=== PATIENT | male | born 1940 ===

== ENCOUNTER 2016-07-02 00:34 | Emergency (ER) | payer MEDICARE, MEDICAID ==
[2016-07-02 00:34] VITALS: BMI 28.3
[2016-07-02 00:52] VITALS: O2SAT 97
[2016-07-02 01:00] VITALS: RESP 18
--- NOTE | 2016-07-02 01:28 | C.PDOC ---
History Of Present Illness The patient reports that he checked his BP at 11pm tonight and it was found to be elevated. BP was 159/107 and patient took Metoprolol 50mg PO. Currently the patient states he had no symptoms and feels well. Denies chest pain, SOB, numbness, weakness, back pain, abdominal pain, headache, or vision changes. Time Seen by Provider: 07/02/16 00:53 Chief Complaint (Nursing): High Blood Pressure History Per: Patient History/Exam Limitations: no limitations Current Symptoms Are (Timing): Gone Quality Of Symptoms: Asymptomatic Exacerbating Factor(s): Pos: None Recent travel outside of the [place]: No Past Medical History Reviewed: Historical Data, Nursing Documentation, Vital Signs Vital Signs: Last Vital Signs Temp 98.1 F 07/02/16 00:53 Pulse 83 07/02/16 00:53 Resp 18 07/02/16 00:53 BP 138/98 H 07/02/16 00:53 Pulse Ox 97 07/02/16 01:50 - Medical History PMH: Alzheimer's Disease, Anxiety, Dementia, HTN Denies: Chronic Kidney Disease - [facility] Procedures INTRODUCTION OF SERUM/TOX/VACCINE INTO MUSCLE, PERC APPROACH (12/09/14) Family History: States: No Known Family Hx - Social History Hx Tobacco Use: No Hx Alcohol Use: No Hx Substance Use: No - Immunization History Hx Tetanus Toxoid Vaccination: No Hx Influenza Vaccination: Yes Hx Pneumococcal Vaccination: No Review Of Systems Except As Marked, All Systems Reviewed And Found Negative. Physical Exam - Physical Exam Appears: Well, No Acute Distress Skin: Normal Color, Warm, Dry, No Rash Head: Atraumatic, Normacephalic Eye(s): bilateral: Normal Inspection, PERRL, EOMI Nose: Normal Oral Mucosa: Moist Throat: Normal Neck: Normal, Normal ROM, Supple Chest: Symmetrical, No Tenderness Cardiovascular: Rhythm Regular, No Friction Rub, No Murmur Respiratory: Normal Breath Sounds, No Rales, No Rhonchi, No Wheezing Gastrointestinal/Abdominal: Normal Exam, Soft, No Tenderness Back: Normal Inspection, No CVA Tenderness Extremity: Normal ROM, No Tenderness, No Swelling Neurological/Psych: Oriented x3, Normal Speech, Normal Motor Gait: Steady ED Course And Treatment O2 Sat by Pulse Oximetry: 97 (on RA) Pulse Ox Interpretation: Normal Medical Decision Making Medical Decision Making: BP was rechecked and currently has improved. The patient remain asymptomatic and will follow up with his PMD within 1-2 days for BP recheck and medication review. Disposition - Disposition Referrals: Terence Cortez MD [Staff Provider] - Disposition: HOME/ ROUTINE Disposition Time: 01:58 Condition: GOOD Additional Instructions: Follow up with the medical doctor within 1-2 days without fail for BP recheck. Return if worsened. Instructions: Hypertension (DC) - Clinical Impression Clinical Impression: Hypertension
[2016-07-02 02:06] VITALS: BP 128/93; PULSE 70; TEMP 97.9
== END 2016-07-02 02:12 | disposition home or self-care (01) ==
LOC: C.ER 00:34
DX: I10 Essential (primary) hypertension (principal)

== ENCOUNTER 2017-05-08 17:51 | Emergency (ER) | payer MEDICARE, MEDICAID ==
[2017-05-08 17:51] VITALS: BMI 28.3
[2017-05-08 18:21] VITALS: TEMP 97.6
[2017-05-08] MEDS ORDERED: Sodium Chloride 0.9% 1,000 ML IV ONE (19:05)
[2017-05-08 19:17] LABS: BASO % 0.1 % (0.0-2.0); HEMOGLOBIN 14.5 g/dL (12.0-18.0); LYMPH # 0.6 K/uL (1.0-4.3); LYMPH % 9.2 % (20.0-40.0); MEAN CELL VOLUME 87.3 fL (80.0-94.0); MEAN CORPUSCULAR HEMOGLOBIN 29.3 pg (27.0-31.0); MEAN CORPUSCULAR HGB CONC 33.6 g/dL (33.0-37.0); MEAN PLATELET VOLUME 7.7 fL (7.2-11.7); MONO # 0.3 K/uL (0.0-0.8); MONO % 4.7 % (0.0-10.0); PLATELET COUNT 215 K/uL (130-400); RBC 4.96 Mil/uL (4.40-5.90); RED CELL DISTRIBUTION WIDTH 13.7 % (11.5-14.5)
[2017-05-08 19:29] LABS: ALB/GLOB RATIO 1.1 (1.0-2.1); ALBUMIN 4.3 g/dL (3.5-5.0); ALT/SGPT 32 U/L (21-72); AST/SGOT 27 U/L (17-59); BLOOD UREA NITROGEN 15 mg/dL (9-20); CALCIUM 8.3 mg/dl (8.6-10.4); GFR AFRICAN-AMERICAN > 60; GFR NON-AFRICAN AMERICAN > 60; LIPASE 45 U/L (23-300)
[2017-05-08 19:46] LABS: URINE BACTERIA RARE (<OCC); URINE BILIRUBIN NEGATIVE (NEGATIVE); URINE CLARITY Clear (Clear); URINE COLOR Yellow (YELLOW); URINE GLUCOSE (UA) 1+ mg/dL (Normal); URINE LEUKOCYTE ESTERASE NEG Leu/uL (Negative); URINE PROTEIN 1+ mg/dL (NEGATIVE); URINE UROBILINOGEN NORMAL mg/dL (0.2-1.0)
[2017-05-08 19:47] LABS: URINE BLOOD 1+ (NEGATIVE)
[2017-05-08 20:02] LABS: BARBITURATES, UR NEGATIVE (NEGATIVE); OPIATES, UR NEGATIVE (NEGATIVE); PHENCYCLIDINE, UR NEGATIVE (NEGATIVE)
[2017-05-08 20:04] LABS: BENZODIAZEPINES, UR POSITIVE (NEGATIVE)
--- NOTE | 2017-05-08 20:07 | C.PDOC ---
History Of Present Illness 76 year old male presents to the ED for evaluation of nausea, vomiting and diarrhea which began at 0800 today. Patient denies eating anything unusual from his regular diet. He denies fever, chills. Time Seen by Provider: 05/08/17 18:43 Chief Complaint (Nursing): GI Problem History Per: Patient History/Exam Limitations: no limitations Onset/Duration Of Symptoms: Hrs Current Symptoms Are (Timing): Still Present Quality Of Discomfort: "Pain" Associated Symptoms: Nausea, Vomiting, Diarrhea. denies: Fever, Chills Additional History Per: Patient Past Medical History Reviewed: Historical Data, Nursing Documentation, Vital Signs Vital Signs: Last Vital Signs Temp 97.6 F 05/08/17 18:12 Pulse 108 H 05/08/17 20:35 Resp 16 05/08/17 20:35 BP 160/94 H 05/08/17 20:35 Pulse Ox 96 05/08/17 22:51 - Medical History PMH: Alzheimer's Disease, Anxiety, Dementia, HTN Denies: Chronic Kidney Disease Surgical History: No Surg Hx - [facility] Procedures INTRODUCTION OF SERUM/TOX/VACCINE INTO MUSCLE, PERC APPROACH (12/09/14) Family History: States: Unknown Family Hx - Social History Hx Tobacco Use: No Hx Alcohol Use: No Hx Substance Use: No - Immunization History Hx Tetanus Toxoid Vaccination: No Hx Influenza Vaccination: Yes Hx Pneumococcal Vaccination: No Review Of Systems Constitutional: Negative for: Fever, Chills Gastrointestinal: Positive for: Nausea, Vomiting, Diarrhea Physical Exam - Physical Exam Appears: Non-toxic, No Acute Distress Skin: Normal Color, Warm, Dry Head: Atraumatic, Normacephalic Eye(s): bilateral: Normal Inspection Oral Mucosa: Dry Neck: Supple Chest: Symmetrical, No Deformity, No Tenderness Cardiovascular: Rhythm Regular, No Murmur Respiratory: Normal Breath Sounds, No Rales, No Rhonchi, No Wheezing Gastrointestinal/Abdominal: Soft, No Tenderness, No Guarding, No Rebound, Other (obese ) Extremity: Normal ROM, Capillary Refill (less than 2 seconds) Neurological/Psych: Oriented x3, Normal Speech, Normal Cognition Gait: Steady ED Course And Treatment - Laboratory Results Result Diagrams: 05/08/17 19:14 05/08/17 19:14 Lab Interpretation: Normal (trop neg.) ECG: Interpreted By Me ECG Rhythm: Sinus Rhythm, Sinus Tachycardia ECG Interpretation: Abnormal Rate From EC O2 Sat by Pulse Oximetry: 96 (on RA ) Pulse Ox Interpretation: Normal - Radiology CXR: Interpreted by Me CXR Interpretation: Yes: No Acute Disease - Other Rad abd x 2 X-Ray: Interpreted by Me (+FOS) Progress Note: Bloodwork, urinalysis, Obstructive Series XR, EKG ordered and reviewed. Pepcid IVP, Toradol IVP, Zofran IVP and IV Fluids administered. Reevaluation Time: 20:19 Reassessment Condition: Improved Medical Decision Making Medical Decision Making: "diarrhea" unlikely as pt abd films x 2 show +FOS, no obst does not describe rectal impaction with leakages nor do abd films support this LOW susp of atypical ACS, normal trop and ekg likely food intolerance from breakfast and/or viral syndrome (viral gastroenteritis popular local dx) Improved with ED tx. Disposition Doctor Will See Patient In The: Office Counseled Patient/Family Regarding: Studies Performed, Diagnosis - Disposition Referrals: Terence Cortez MD [Staff Provider] - Disposition: HOME/ ROUTINE Disposition Time: 20:21 Condition: GOOD Additional Instructions: dieta blanda por 2 urrutia Ida comidas que provocan estrenemeiento. come verduras y frutas crudas diarios Sigue con Dr. Bauer scott normal. Instructions: Viral Gastroenteritis Forms: [facility] (French) Print Language: FRENCH - Clinical Impression Clinical Impression: Gastroenteritis - Scribe Statement The provider has reviewed the documentation as recorded by the Scribe (Minoo Shearer) Provider Attestation: All medical record entries made by the Scribe were at my direction and personally dictated by me. I have reviewed the chart and agree that the record accurately reflects my personal performance of the history, physical exam, medical decision making, and the department course for this patient. I have also personally directed, reviewed, and agree with the discharge instructions and disposition.
[2017-05-08 20:35] VITALS: BP 160/94; PULSE 108; RESP 16
[2017-05-08 20:43] LABS: LYMPHOCYTE 7 % (20-40); MONOCYTE 4 % (0-10); NEUTROPHIL 89 % (50-75); PLATELET ESTIMATE NORMAL (NORMAL); TOTAL CELLS COUNTED 100
[2017-05-08 22:51] VITALS: O2SAT 96
--- NOTE | 2017-05-09 09:58 | RAD ---
PROCEDURE: Radiographs of the chest and abdomen (obstructive series) HISTORY: abd pain COMPARISON: No prior. TECHNIQUE: AP radiograph of the chest, with upright and supine radiographs of the abdomen. FINDINGS: CHEST: Lungs: The lungs are well inflated and clear. Cardiovascular: Normal size heart. No pulmonary vascular congestion. Pleura: No pleural fluid. No pneumothorax. Other findings: None. ABDOMEN AND PELVIS: Bowel: There is moderate amount of stool scattered in the colon. No evidence of mechanical obstruction. Free air: None. 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 Other findings: None. IMPRESSION: Nonspecific bowel gas pattern. Clear lungs.
--- NOTE | 2017-05-09 23:36 | CARD ---
APPROVED REPORT EKG Measurement Heart [id number] <Conclusion> Sinus tachycardia Otherwise normal ECG
== END 2017-05-08 21:05 | disposition home or self-care (01) ==
LOC: C.ER 17:51
DX: K52.9 Noninfective gastroenteritis and colitis, unspecified (principal); I10 Essential (primary) hypertension; G30.9 Alzheimer's disease, unspecified; F02.80 Dementia in other diseases classified elsewhere, unspecified severity, without behavioral disturbance, psychotic disturbance, mood disturbance, and anxiety; Z87.891 Personal history of nicotine dependence
CPT/HCPCS: 74022; 80053; 81001; 83690; 84484; 85025; 93005; 96361; 96374; 96375; 99285; G0480; J1885; J2405; J7040

== ENCOUNTER 2017-10-31 09:19 | Emergency (ER) | payer OTHER ==
[2017-10-31 09:33] VITALS: BMI 25.6
--- NOTE | 2017-10-31 10:33 | RAD ---
Date of service: 10/31/2017 PROCEDURE: Right Knee Radiographs. HISTORY: RIGHT KNEE PAIN R/O FX COMPARISON: None. FINDINGS: BONES: No acute fracture or destructive bony lesion identified. JOINTS: No subluxation or dislocation with limited medial compartment degenerative joint space narrowing is identified, similar at the patellofemoral articulation. No osteophyte formation or prominent cortical sclerosis. JOINT EFFUSION: Trace suprasellar bursa effusion may be present. OTHER FINDINGS: None. IMPRESSION: Limited bicompartmental degenerative joint disease. No acute fracture or dislocation identified right knee.
--- NOTE | 2017-10-31 11:23 | C.PDOC ---
History Of Present Illness 77-year-old male presents to the ED for evaluation of right knee pain after he sustained a fall yesterday. Patient states he was walking when he tripped on something and fell forward, hitting his right knee to the ground. Patient states pain is worse with ambulation and reports difficulty with bearing weight. He denies head injury, LOC, extremity numbness/weakness. Time Seen by Provider: 10/31/17 09:54 Chief Complaint (Nursing): Lower Extremity Problem/Injury History Per: Patient History/Exam Limitations: no limitations Onset/Duration Of Symptoms: Hrs Current Symptoms Are (Timing): Still Present Additional History Per: Patient - Knee Description Of Injury: Fell Past Medical History Reviewed: Historical Data, Nursing Documentation, Vital Signs Vital Signs: Last Vital Signs Temp 98.0 F 10/31/17 12:00 Pulse 70 10/31/17 12:00 Resp 20 10/31/17 12:00 BP 130/76 10/31/17 12:00 Pulse Ox 97 10/31/17 18:30 - Medical History PMH: Alzheimer's Disease, Anxiety, Dementia, HTN Denies: Chronic Kidney Disease Surgical History: No Surg Hx - [facility] Procedures INTRODUCTION OF SERUM/TOX/VACCINE INTO MUSCLE, PERC APPROACH (12/09/14) Family History: States: Unknown Family Hx - Social History Hx Tobacco Use: No Hx Alcohol Use: No Hx Substance Use: No - Immunization History Hx Tetanus Toxoid Vaccination: No Hx Influenza Vaccination: Yes Hx Pneumococcal Vaccination: No Review Of Systems Musculoskeletal: Positive for: Other (right knee pain ) Neurological: Negative for: Weakness, Numbness, Other (head injury, LOC ) Physical Exam - Physical Exam Appears: Non-toxic, No Acute Distress, Other (elderly male ) Skin: Normal Color, Warm, Dry Head: Atraumatic, Normacephalic Eye(s): bilateral: Normal Inspection Oral Mucosa: Moist Neck: Supple Chest: Symmetrical, No Deformity, No Tenderness Cardiovascular: Rhythm Regular, No Murmur Respiratory: Normal Breath Sounds, No Rales, No Rhonchi, No Wheezing Extremity: Normal ROM, Capillary Refill (less than 2 seconds ), No Deformity, No Swelling, Other (mild swelling and tenderness to palpation to region medial to the patella ) Pulses: Left Dorsalis Pedis: Normal, Right Dorsalis Pedis: Normal Neurological/Psych: Oriented x3, Normal Speech, Normal Cognition ED Course And Treatment O2 Sat by Pulse Oximetry: 97 (on RA) Pulse Ox Interpretation: Normal - Other Rad knee XR X-Ray: Viewed By Me, Read By Radiologist Interpretation: PROCEDURE: Right Knee Radiographs. HISTORY: RIGHT KNEE PAIN R /O FX. COMPARISON: None. FINDINGS: BONES: No acute fracture or destructive bony lesion identified. JOINTS: No subluxation or dislocation with limited medial compartment degenerative joint space narrowing is identified, similar at the patellofemoral articulation. No osteophyte formation or prominent cortical sclerosis. JOINT EFFUSION: Trace suprasellar bursa effusion may be present. OTHER FINDINGS: None. IMPRESSION: Limited bicompartmental degenerative joint disease. No acute fracture or dislocation identified right knee. Progress Note: Right knee XR ordered. XR shows arthritic changes but no fractures. ROYAL bandage applied to knee. Patient was evaluated by PT for crutches, but upon evaluation recommend that patient be given a walker. On reassessment, patient is resting comfortably, showing no signs of distress and is stable for discharge. Patient understands to follow up with orthopedic care within 1-2 days for further evaluation. Disposition Counseled Patient/Family Regarding: Diagnosis, Need For Followup, Rx Given - Disposition Referrals: Dell Bal III, MD [Staff Provider] - [facility] [Outside] Terence Cortez MD [Staff Provider] - Disposition: HOME/ ROUTINE Disposition Time: 11:35 Condition: STABLE Additional Instructions: FOLLOW UP WITH ORTHOPEDICS WITHIN 1 WEEK USE MEDICATION NEEDED FOR PAIN RETURN TO EMERGENCY ROOM IF SYMPTOMS WORSEN SEGUIMIENTO CON ORTOPEDIA DENTRO DE 1 SEMANA USE MEDICAMENTO SEGN SEA NECESARIO PARA DOLOR REGRESE AL JT DE EMERGENCIA SI LOS SNTOMAS EMPEORAN Prescriptions: Ibuprofen [Motrin Tab] 600 mg PO Q6 PRN #30 tab PRN Reason: fever/pain Forms: [facility] (Surinamese) Print Language: ROMANIAN - POA Present On Arrival: Falls Or Trauma - Clinical Impression Clinical Impression: Right knee sprain - Scribe Statement The provider has reviewed the documentation as recorded by the Scribe (Minoo Shearer) Provider Attestation: All medical record entries made by the Scribe were at my direction and personally dictated by me. I have reviewed the chart and agree that the record accurately reflects my personal performance of the history, physical exam, medical decision making, and the department course for this patient. I have also personally directed, reviewed, and agree with the discharge instructions and disposition.
[2017-10-31 12:03] VITALS: BP 130/76; PULSE 70; RESP 20; TEMP 98
[2017-10-31 18:28] VITALS: O2SAT 97
== END 2017-10-31 12:03 | disposition home or self-care (01) ==
LOC: C.ER 09:19
DX: S83.91XA Sprain of unspecified site of right knee, initial encounter (principal); W01.0XXA Fall on same level from slipping, tripping and stumbling without subsequent striking against object, initial encounter; Y93.01 Activity, walking, marching and hiking
CPT/HCPCS: 73562; 97116; 97161; 99285; G8978; G8979